=== PATIENT | male | born 1980 | race American Indian/Alaskan Native ===

== ENCOUNTER 2022-03-30 19:13 | Emergency (ER) | payer SELFPAY ==
[2022-03-30 20:28] VITALS: BP 183/110
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
== END 2022-03-31 23:00 | disposition left against medical advice (07) ==
LOC: ED 19:13
DX: M25.512 Pain in left shoulder (principal); Z53.21 Procedure and treatment not carried out due to patient leaving prior to being seen by health care provider